=== PATIENT | male | born 1965 | race Caucasian/White ===

== ENCOUNTER 2018-03-27 17:38 | Inpatient (IN) | payer MEDICARE, OTHER ==
[~2018-03-27] VITALS: Ht 175.3 cm; Wt 158.5 kg
[2018-03-27] MEDS ORDERED: heparin 10,000 units/1 ML INJ IV ONE (18:15)
[2018-03-27] MEDS ORDERED: ondansetron/PF 4mg/2ml inj IV ONE (18:15)
[2018-03-27] MEDS ORDERED: fentaNYL/PF 50MCG/1 ML 2ML syringe IV ONE (18:15)
[2018-03-27] MEDS ORDERED: etomidate 2mg/ml inj. IV ONE (18:15)
[2018-03-27 18:17] LABS: BASOPHILS % (AUTO) 0.7 % (0-1); EOSINOPHILS # (AUTO) 0.1 X10'3 (0-0.9); HEMATOCRIT 43.1 % (42.0-52.0); HEMOGLOBIN 14.6 g/dl (14.0-17.9); LYMPHOCYTES # (AUTO) 2.2 X10'3 (1.1-4.8); LYMPHOCYTES % (AUTO) 31.9 % (21-51); MEAN CORPUSCULAR HEMOGLOBIN 31.3 PG (27.0-31.0); MEAN CORPUSCULAR HGB CONC 33.8 % (33.0-36.5); MEAN CORPUSCULAR VOLUME 92.7 FL (78-98); MEAN PLATELET VOLUME 7.1 FL (7.4-10.4); MONOCYTES # (AUTO) 0.4 X10'3 (0-0.9); MONOCYTES % (AUTO) 6.4 % (2-12); PLATELET COUNT 256 X10'3 (140-440); RED BLOOD COUNT 4.65 X10'6 (4.70-6.10); RED CELL DISTRIBUTION WIDTH 15.3 % (11.5-14.5); WHITE BLOOD COUNT 6.8 X10'3 (4.5-11.0)
[2018-03-27 18:27] LABS: ALANINE AMINOTRANSFERASE 45 U/L (12-78); ALBUMIN 3.2 G/DL (3.4-5.0); ALBUMIN/GLOBULIN RATIO 0.8 (1.1-1.5); ALKALINE PHOSPHATASE 94 IU/L (46-116); ANION GAP 14 (8-16); ASPARTATE AMINO TRANSFERASE 41 U/L (10-37); BILIRUBIN,TOTAL 0.6 MG/DL (0.1-1.0); BLOOD UREA NITROGEN 10 MG/DL (7-18); BUN/CREATININE RATIO 12.7 (5.4-32.0); CALCIUM 7.4 MG/DL (8.5-10.1); CHLORIDE 106 MMOL/L (99-107); CREATININE 0.79 MG/DL (0.60-1.10); GLUCOSE 116 MG/DL (70-104); POTASSIUM 3.7 MMOL/L (3.5-5.1); SODIUM 145 MMOL/L (135-145); TOTAL CARBON DIOXIDE 25.5 MMOL/L (24-32); eGFR > 90 ML/MIN
[2018-03-27 18:33] LABS: D-DIMER 0.89 MG/L FEU (0-0.50); INR 1.1 INR; PARTIAL THROMBOPLASTIN TIME 30 SECONDS (22-32); PROTHROMBIN TIME 11.2 SECONDS (9.0-12.0)
[2018-03-27] MEDS ORDERED: amiodarone 150mg/dext, iso-os 100 ML IV ONE ×2 (19:15→20:25)
[2018-03-27] MEDS ORDERED: digoxin 250mcg/ml 2ml ampule IV ONE (19:25)
[2018-03-27] MEDS ORDERED: CYCL-394 PO (20:30)
[2018-03-27] MEDS ORDERED: DULO60CA45 PO (20:34)
[2018-03-27] MEDS ORDERED: DIGO125T PO (20:34)
[2018-03-27] MEDS ORDERED: LISI-642 PO (20:34)
[2018-03-27] MEDS ORDERED: ALLO100T PO (20:34)
[2018-03-27] MEDS ORDERED: GABA-532 PO (20:34)
[2018-03-27] MEDS ORDERED: FURO80TA3 PO (20:34)
[2018-03-27] MEDS ORDERED: SPIR25TA5 PO (20:34)
[2018-03-27] MEDS ORDERED: RIVA20TA PO (20:34)
[2018-03-27] MEDS ORDERED: morphine 2 MG/ML inj. syringe IV PRN (21:45)
[2018-03-27] MEDS ORDERED: mag hydrox/Alum hydrox/simeth 30ml oral suspension PO PRN (21:45)
[2018-03-27] MEDS ORDERED: ondansetron/PF 4mg/2ml inj IV PRN (21:45)
[2018-03-27] MEDS ORDERED: acetaminophen 325mg tablet PO PRN (21:45)
[2018-03-27] MEDS ORDERED: HYDROcodone/acetaminophen 5mg/325mg tablet PO PRN (21:45)
[2018-03-27] MEDS ORDERED: magnesium hydroxide 30ml (MOM) UD suspension PO PRN (21:45)
[2018-03-27] MEDS: amiodarone/D5 360MG/200ML BAG 200 ML IV SCH (22:10)
[2018-03-27] MEDS: morphine 4 MG/ML inj SYRINge IV PRN (22:11)
[2018-03-27 22:17] LABS: HEMOGLOBIN A1C 5.5 % (4.5-6.2)
[2018-03-28] VITALS (9 sets, daily range): BP systolic 123–180; BP diastolic 85–141
[2018-03-28] MEDS: morphine 4 MG/ML inj SYRINge IV PRN ×3 (02:32→21:44)
[2018-03-28] MEDS: amiodarone/D5 360MG/200ML BAG 200 ML IV SCH ×4 (05:04→22:06)
[2018-03-28] MEDS ORDERED: dextrose 50%-water 50ml dispensing syringe IV PRN (07:25)
[2018-03-28] MEDS ORDERED: haloperidol lactate 5mg/ml inj IM PRN (07:25)
[2018-03-28] MEDS ORDERED: haloperidol 5mg tablet PO PRN (07:25)
[2018-03-28 07:37] LABS: BASOPHILS % (AUTO) 0.1 % (0-1); EOSINOPHILS # (AUTO) 0.2 X10'3 (0-0.9); EOSINOPHILS % (AUTO) 2.2 % (0-6); HEMATOCRIT 45.4 % (42.0-52.0); HEMOGLOBIN 14.9 g/dl (14.0-17.9); LYMPHOCYTES # (AUTO) 1.4 X10'3 (1.1-4.8); LYMPHOCYTES % (AUTO) 16.2 % (21-51); MEAN CORPUSCULAR HEMOGLOBIN 30.6 PG (27.0-31.0); MEAN CORPUSCULAR HGB CONC 32.9 % (33.0-36.5); MEAN PLATELET VOLUME 6.8 FL (7.4-10.4); MONOCYTES # (AUTO) 0.5 X10'3 (0-0.9); MONOCYTES % (AUTO) 5.7 % (2-12); NEUTROPHILS # (AUTO) 6.8 X10'3 (1.8-7.7); NEUTROPHILS % (AUTO) 75.8 % (42-75); PLATELET COUNT 229 X10'3 (140-440); RED BLOOD COUNT 4.88 X10'6 (4.70-6.10); RED CELL DISTRIBUTION WIDTH 15.5 % (11.5-14.5); WHITE BLOOD COUNT 8.9 X10'3 (4.5-11.0)
[2018-03-28] MEDS: LORazepam 2 mg/ml vial IV PRN ×3 (07:41→18:53)
[2018-03-28] MEDS: digoxin 125mcg (0.125mg) tablet PO SCH (07:47)
[2018-03-28] MEDS: gabapentin 300mg capsule PO SCH ×3 (07:47→21:39)
[2018-03-28] MEDS: cyclobenzaprine 10mg tablet PO SCH ×3 (07:47→21:40)
[2018-03-28] MEDS: rivaroxaban 20mg tablet PO SCH (07:48)
[2018-03-28] MEDS: furosemide 40mg tablet PO SCH ×2 (07:48→21:39)
[2018-03-28] MEDS: duloxetine 30mg CAPSULE.DR PO SCH (07:48)
[2018-03-28] MEDS: allopurinol 100mg tablet PO SCH ×2 (07:48→21:39)
[2018-03-28] MEDS: lisinopril 5mg tablet PO SCH ×2 (07:49→17:42)
[2018-03-28] MEDS: spironolactone 25 MG tablet PO SCH (07:49)
[2018-03-28 07:51] LABS: ALANINE AMINOTRANSFERASE 41 U/L (12-78); ALBUMIN 3.4 G/DL (3.4-5.0); ALBUMIN/GLOBULIN RATIO 0.9 (1.1-1.5); ALKALINE PHOSPHATASE 93 IU/L (46-116); ANION GAP 12 (8-16); ASPARTATE AMINO TRANSFERASE 31 U/L (10-37); BILIRUBIN,TOTAL 1.1 MG/DL (0.1-1.0); BLOOD UREA NITROGEN 9 MG/DL (7-18); BUN/CREATININE RATIO 10.5 (5.4-32.0); CALCIUM 7.8 MG/DL (8.5-10.1); CHLORIDE 101 MMOL/L (99-107); CREATININE 0.86 MG/DL (0.60-1.10); GLUCOSE 112 MG/DL (70-104); SODIUM 141 MMOL/L (135-145); TOTAL CARBON DIOXIDE 27.8 MMOL/L (24-32); TOTAL PROTEIN 7.2 G/DL (6.4-8.2); eGFR > 90 ML/MIN
[2018-03-28 07:54] LABS: CHOL/HDL RATIO 3.3 (0.00-4.99); CHOLESTEROL 271 MG/DL (0-200); HDL CHOLESTEROL 82 MG/DL (35-60); LDL CHOLESTEROL 172 MG/DL (50-100); TRIGLYCERIDES 92 MG/DL (20-135)
[2018-03-28] MEDS: HYDROcodone/acetaminophen 10/325mg tab PO PRN ×2 (12:04→18:53)
[2018-03-28] MEDS: carVEDilol 12.5mg tablet PO SCH ×2 (12:04→21:40)
[2018-03-28] MEDS ORDERED: hydrALAZINE 20mg/ml inj. IV PRN (18:00)
[2018-03-29] MEDS: LORazepam 2 mg/ml vial IV PRN ×7 (00:06→18:58)
[2018-03-29] MEDS: HYDROcodone/acetaminophen 10/325mg tab PO PRN (00:18)
[2018-03-29] MEDS: morphine 4 MG/ML inj SYRINge IV PRN ×6 (01:53→21:40)
[2018-03-29] MEDS: amiodarone/D5 360MG/200ML BAG 200 ML IV SCH (01:53)
[2018-03-29 03:00] VITALS: BP 127/89
[2018-03-29 05:57] LABS: BASOPHILS # (AUTO) 0.1 X10'3 (0-0.2); BASOPHILS % (AUTO) 1.4 % (0-1); EOSINOPHILS # (AUTO) 0.3 X10'3 (0-0.9); EOSINOPHILS % (AUTO) 4.7 % (0-6); HEMATOCRIT 40.4 % (42.0-52.0); HEMOGLOBIN 13.7 g/dl (14.0-17.9); LYMPHOCYTES # (AUTO) 1.6 X10'3 (1.1-4.8); LYMPHOCYTES % (AUTO) 24.2 % (21-51); MEAN CORPUSCULAR HEMOGLOBIN 31.5 PG (27.0-31.0); MEAN CORPUSCULAR HGB CONC 33.9 % (33.0-36.5); MEAN PLATELET VOLUME 7.2 FL (7.4-10.4); MONOCYTES # (AUTO) 0.5 X10'3 (0-0.9); NEUTROPHILS # (AUTO) 4.1 X10'3 (1.8-7.7); NEUTROPHILS % (AUTO) 62.7 % (42-75); PLATELET COUNT 199 X10'3 (140-440); RED BLOOD COUNT 4.35 X10'6 (4.70-6.10); RED CELL DISTRIBUTION WIDTH 15.3 % (11.5-14.5); WHITE BLOOD COUNT 6.6 X10'3 (4.5-11.0)
[2018-03-29 06:00] VITALS: BP 105/70
[2018-03-29 06:30] LABS: ALANINE AMINOTRANSFERASE 30 U/L (12-78); ALBUMIN 2.9 G/DL (3.4-5.0); ALBUMIN/GLOBULIN RATIO 0.9 (1.1-1.5); ALKALINE PHOSPHATASE 84 IU/L (46-116); ANION GAP 11 (8-16); ASPARTATE AMINO TRANSFERASE 22 U/L (10-37); BILIRUBIN,TOTAL 1.2 MG/DL (0.1-1.0); BLOOD UREA NITROGEN 13 MG/DL (7-18); BUN/CREATININE RATIO 12.6 (5.4-32.0); CALCIUM 7.3 MG/DL (8.5-10.1); CHLORIDE 99 MMOL/L (99-107); CREATININE 1.03 MG/DL (0.60-1.10); GLUCOSE 110 MG/DL (70-104); POTASSIUM 3.8 MMOL/L (3.5-5.1); SODIUM 139 MMOL/L (135-145); TOTAL CARBON DIOXIDE 29.3 MMOL/L (24-32); TOTAL PROTEIN 6.3 G/DL (6.4-8.2); eGFR 76 ML/MIN
[2018-03-29] MEDS: allopurinol 100mg tablet PO SCH ×2 (07:51→21:37)
[2018-03-29] MEDS: furosemide 40mg tablet PO SCH ×2 (07:52→21:36)
[2018-03-29] MEDS: gabapentin 300mg capsule PO SCH ×3 (07:53→21:38)
[2018-03-29] MEDS: duloxetine 30mg CAPSULE.DR PO SCH (07:53)
[2018-03-29] MEDS: digoxin 125mcg (0.125mg) tablet PO SCH (07:54)
[2018-03-29] MEDS: rivaroxaban 20mg tablet PO SCH (07:54)
[2018-03-29] MEDS: cyclobenzaprine 10mg tablet PO SCH ×3 (07:54→21:37)
[2018-03-29] MEDS: lisinopril 5mg tablet PO SCH ×2 (07:54→17:15)
[2018-03-29] MEDS: carVEDilol 12.5mg tablet PO SCH ×2 (07:54→20:00)
[2018-03-29] MEDS: spironolactone 25 MG tablet PO SCH (07:56)
[2018-03-29 11:00] VITALS: BP 99/56
[2018-03-29 15:00] VITALS: BP 98/79
[2018-03-29 18:00] VITALS: BP 106/59
[2018-03-29 22:00] VITALS: BP 124/70
[2018-03-30] MEDS: LORazepam 2 mg/ml vial IV PRN ×3 (00:29→23:05)
[2018-03-30 02:00] VITALS: BP 112/79
[2018-03-30] MEDS: morphine 4 MG/ML inj SYRINge IV PRN ×4 (04:03→20:36)
[2018-03-30 06:00] VITALS: BP 127/89
[2018-03-30 06:03] LABS: BASOPHILS # (AUTO) 0.1 X10'3 (0-0.2); BASOPHILS % (AUTO) 0.9 % (0-1); EOSINOPHILS # (AUTO) 0.5 X10'3 (0-0.9); EOSINOPHILS % (AUTO) 6.6 % (0-6); HEMATOCRIT 41.2 % (42.0-52.0); HEMOGLOBIN 13.6 g/dl (14.0-17.9); LYMPHOCYTES # (AUTO) 1.4 X10'3 (1.1-4.8); LYMPHOCYTES % (AUTO) 20.4 % (21-51); MEAN CORPUSCULAR HEMOGLOBIN 30.8 PG (27.0-31.0); MEAN CORPUSCULAR VOLUME 93.1 FL (78-98); MEAN PLATELET VOLUME 7.7 FL (7.4-10.4); MONOCYTES # (AUTO) 0.5 X10'3 (0-0.9); MONOCYTES % (AUTO) 6.7 % (2-12); NEUTROPHILS # (AUTO) 4.6 X10'3 (1.8-7.7); NEUTROPHILS % (AUTO) 65.4 % (42-75); PLATELET COUNT 170 X10'3 (140-440); RED BLOOD COUNT 4.42 X10'6 (4.70-6.10); RED CELL DISTRIBUTION WIDTH 14.9 % (11.5-14.5)
[2018-03-30 06:40] LABS: ALANINE AMINOTRANSFERASE 32 U/L (12-78); ALBUMIN/GLOBULIN RATIO 0.8 (1.1-1.5); ALKALINE PHOSPHATASE 82 IU/L (46-116); ANION GAP 8 (8-16); ASPARTATE AMINO TRANSFERASE 31 U/L (10-37); BLOOD UREA NITROGEN 23 MG/DL (7-18); BUN/CREATININE RATIO 20.4 (5.4-32.0); CALCIUM 8.4 MG/DL (8.5-10.1); CHLORIDE 97 MMOL/L (99-107); CREATININE 1.13 MG/DL (0.60-1.10); GLUCOSE 110 MG/DL (70-104); POTASSIUM 4.3 MMOL/L (3.5-5.1); SODIUM 138 MMOL/L (135-145); TOTAL CARBON DIOXIDE 33.4 MMOL/L (24-32); TOTAL PROTEIN 6.7 G/DL (6.4-8.2); eGFR 68 ML/MIN
[2018-03-30] MEDS: duloxetine 30mg CAPSULE.DR PO SCH (08:46)
[2018-03-30] MEDS: lisinopril 5mg tablet PO SCH (08:47)
[2018-03-30] MEDS: cyclobenzaprine 10mg tablet PO SCH ×3 (08:47→20:35)
[2018-03-30] MEDS: gabapentin 300mg capsule PO SCH ×3 (08:47→20:35)
[2018-03-30] MEDS: spironolactone 25 MG tablet PO SCH (08:47)
[2018-03-30] MEDS: rivaroxaban 20mg tablet PO SCH (08:47)
[2018-03-30] MEDS: allopurinol 100mg tablet PO SCH ×2 (08:47→20:35)
[2018-03-30] MEDS: furosemide 40mg tablet PO SCH (08:47)
[2018-03-30] MEDS: digoxin 125mcg (0.125mg) tablet PO SCH (08:48)
[2018-03-30] MEDS: carVEDilol 12.5mg tablet PO SCH ×2 (08:52→20:35)
[2018-03-30 09:09] LABS: MAGNESIUM 1.3 MG/DL (1.5-2.4)
[2018-03-30] MEDS ORDERED: potassium Cl 20 mEq SR tablet PO PRN ×2 (10:50)
[2018-03-30] MEDS ORDERED: magnesium 4gm in 100ml NS 100 ML IV PRN (10:50)
[2018-03-30] MEDS ORDERED: potassium Cl 40MEQ/NS 500ml 500 ML IV PRN ×2 (10:50)
[2018-03-30] MEDS ORDERED: magnesium 1gm/100ml D5W IVPB 100 ML IV PRN (10:50)
[2018-03-30 11:00] VITALS: BP 122/81
[2018-03-30] MEDS ORDERED: digoxin 250mcg/ml 2ml ampule IV ONE ×2 (11:45→18:00)
[2018-03-30] MEDS: magnesium Cl slow-release 64mg tablet PO PRN ×2 (12:21→20:35)
[2018-03-30 15:00] VITALS: BP 101/74
[2018-03-30 18:00] VITALS: BP 114/69
[2018-03-30] MEDS: furosemide 20MG tablet PO SCH (20:35)
[2018-03-30 22:00] VITALS: BP 121/88
[2018-03-31] MEDS: morphine 4 MG/ML inj SYRINge IV PRN ×7 (00:43→21:30)
[2018-03-31 02:00] VITALS: BP 102/70
[2018-03-31] MEDS: LORazepam 2 mg/ml vial IV PRN ×6 (04:43→22:30)
[2018-03-31 06:00] VITALS: BP 94/62
[2018-03-31 07:03] LABS: BASOPHILS # (AUTO) 0.1 X10'3 (0-0.2); BASOPHILS % (AUTO) 0.7 % (0-1); EOSINOPHILS # (AUTO) 0.5 X10'3 (0-0.9); EOSINOPHILS % (AUTO) 6.5 % (0-6); HEMATOCRIT 43.4 % (42.0-52.0); HEMOGLOBIN 14.3 g/dl (14.0-17.9); LYMPHOCYTES # (AUTO) 1.7 X10'3 (1.1-4.8); LYMPHOCYTES % (AUTO) 23.1 % (21-51); MEAN CORPUSCULAR VOLUME 93.8 FL (78-98); MEAN PLATELET VOLUME 7.9 FL (7.4-10.4); MONOCYTES # (AUTO) 0.6 X10'3 (0-0.9); NEUTROPHILS # (AUTO) 4.6 X10'3 (1.8-7.7); NEUTROPHILS % (AUTO) 61.7 % (42-75); PLATELET COUNT 173 X10'3 (140-440); RED BLOOD COUNT 4.63 X10'6 (4.70-6.10); RED CELL DISTRIBUTION WIDTH 14.6 % (11.5-14.5); WHITE BLOOD COUNT 7.4 X10'3 (4.5-11.0)
[2018-03-31] MEDS: rivaroxaban 20mg tablet PO SCH (07:11)
[2018-03-31] MEDS: gabapentin 300mg capsule PO SCH ×3 (07:12→20:46)
[2018-03-31] MEDS: digoxin 125mcg (0.125mg) tablet PO SCH (07:12)
[2018-03-31] MEDS: spironolactone 25 MG tablet PO SCH (07:12)
[2018-03-31] MEDS: cyclobenzaprine 10mg tablet PO SCH ×3 (07:12→20:46)
[2018-03-31] MEDS: furosemide 20MG tablet PO SCH ×2 (07:12→19:19)
[2018-03-31] MEDS: allopurinol 100mg tablet PO SCH ×2 (07:12→19:19)
[2018-03-31] MEDS: lisinopril 5mg tablet PO SCH (07:12)
[2018-03-31] MEDS: duloxetine 30mg CAPSULE.DR PO SCH (07:12)
[2018-03-31] MEDS: carVEDilol 12.5mg tablet PO SCH ×2 (07:13→19:19)
[2018-03-31 07:18] LABS: ALANINE AMINOTRANSFERASE 35 U/L (12-78); ALBUMIN/GLOBULIN RATIO 0.8 (1.1-1.5); ALKALINE PHOSPHATASE 85 IU/L (46-116); ANION GAP 7 (8-16); ASPARTATE AMINO TRANSFERASE 32 U/L (10-37); BLOOD UREA NITROGEN 20 MG/DL (7-18); BUN/CREATININE RATIO 19.4 (5.4-32.0); CALCIUM 8.3 MG/DL (8.5-10.1); CHLORIDE 97 MMOL/L (99-107); CREATININE 1.03 MG/DL (0.60-1.10); GLUCOSE 105 MG/DL (70-104); MAGNESIUM 1.4 MG/DL (1.5-2.4); POTASSIUM 4.1 MMOL/L (3.5-5.1); SODIUM 137 MMOL/L (135-145); TOTAL CARBON DIOXIDE 33.5 MMOL/L (24-32); TOTAL PROTEIN 6.6 G/DL (6.4-8.2); eGFR 76 ML/MIN
[2018-03-31] MEDS: magnesium Cl slow-release 64mg tablet PO PRN (08:18)
[2018-03-31 11:00] VITALS: BP 145/97
[2018-03-31 15:00] VITALS: BP 135/82
[2018-03-31 19:00] VITALS: BP 127/82
[2018-03-31] MEDS: HYDROcodone/acetaminophen 10/325mg tab PO PRN (22:31)
[2018-03-31 23:00] VITALS: BP 115/64
[2018-04-01] MEDS: morphine 4 MG/ML inj SYRINge IV PRN ×4 (00:14→08:33)
[2018-04-01] MEDS: magnesium Cl slow-release 64mg tablet PO PRN (00:15)
[2018-04-01 03:00] VITALS: BP 123/93
[2018-04-01 06:00] VITALS: BP 108/87
[2018-04-01] MEDS: LORazepam 2 mg/ml vial IV PRN ×2 (06:38→16:56)
[2018-04-01 07:02] LABS: BASOPHILS % (AUTO) 0.5 % (0-1); EOSINOPHILS # (AUTO) 0.6 X10'3 (0-0.9); EOSINOPHILS % (AUTO) 8.2 % (0-6); HEMATOCRIT 42.8 % (42.0-52.0); HEMOGLOBIN 14.1 g/dl (14.0-17.9); LYMPHOCYTES # (AUTO) 1.6 X10'3 (1.1-4.8); LYMPHOCYTES % (AUTO) 23.5 % (21-51); MEAN CORPUSCULAR HEMOGLOBIN 30.9 PG (27.0-31.0); MEAN CORPUSCULAR HGB CONC 32.9 % (33.0-36.5); MEAN CORPUSCULAR VOLUME 93.8 FL (78-98); MEAN PLATELET VOLUME 7.6 FL (7.4-10.4); MONOCYTES # (AUTO) 0.7 X10'3 (0-0.9); MONOCYTES % (AUTO) 10.6 % (2-12); NEUTROPHILS # (AUTO) 3.9 X10'3 (1.8-7.7); NEUTROPHILS % (AUTO) 57.2 % (42-75); PLATELET COUNT 174 X10'3 (140-440); RED BLOOD COUNT 4.56 X10'6 (4.70-6.10); RED CELL DISTRIBUTION WIDTH 15.1 % (11.5-14.5); WHITE BLOOD COUNT 6.8 X10'3 (4.5-11.0)
[2018-04-01 07:16] LABS: ANION GAP 5 (8-16); CHLORIDE 98 MMOL/L (99-107); GLUCOSE 109 MG/DL (70-104); POTASSIUM 4.3 MMOL/L (3.5-5.1); SODIUM 135 MMOL/L (135-145); TOTAL CARBON DIOXIDE 32.3 MMOL/L (24-32)
[2018-04-01 07:17] LABS: ALANINE AMINOTRANSFERASE 36 U/L (12-78); ALBUMIN/GLOBULIN RATIO 0.8 (1.1-1.5); ALKALINE PHOSPHATASE 79 IU/L (46-116); ASPARTATE AMINO TRANSFERASE 32 U/L (10-37); BILIRUBIN,TOTAL 0.9 MG/DL (0.1-1.0); BLOOD UREA NITROGEN 21 MG/DL (7-18); BUN/CREATININE RATIO 22.1 (5.4-32.0); CALCIUM 8.6 MG/DL (8.5-10.1); CREATININE 0.95 MG/DL (0.60-1.10); MAGNESIUM 1.6 MG/DL (1.5-2.4); TOTAL PROTEIN 6.8 G/DL (6.4-8.2); eGFR 84 ML/MIN
[2018-04-01] MEDS: gabapentin 300mg capsule PO SCH ×3 (08:00→20:06)
[2018-04-01] MEDS: digoxin 125mcg (0.125mg) tablet PO SCH (08:00)
[2018-04-01] MEDS: carVEDilol 12.5mg tablet PO SCH ×2 (08:00→20:06)
[2018-04-01] MEDS: cyclobenzaprine 10mg tablet PO SCH ×3 (08:00→20:05)
[2018-04-01] MEDS: rivaroxaban 20mg tablet PO SCH (08:00)
[2018-04-01] MEDS: allopurinol 100mg tablet PO SCH ×2 (08:00→20:05)
[2018-04-01] MEDS: duloxetine 30mg CAPSULE.DR PO SCH (08:00)
[2018-04-01] MEDS: furosemide 20MG tablet PO SCH ×2 (08:00→20:05)
[2018-04-01] MEDS: spironolactone 25 MG tablet PO SCH (08:00)
[2018-04-01] MEDS: lisinopril 5mg tablet PO SCH (08:00)
[2018-04-01 11:00] VITALS: BP 109/76
[2018-04-01] MEDS: HYDROcodone/acetaminophen 10/325mg tab PO PRN ×3 (12:38→21:51)
[2018-04-01 15:00] VITALS: BP 107/68
[2018-04-01 19:00] VITALS: BP 123/95
[2018-04-01 23:00] VITALS: BP 145/88
[2018-04-02] MEDS: HYDROcodone/acetaminophen 10/325mg tab PO PRN ×3 (02:07→10:46)
[2018-04-02 03:00] VITALS: BP 114/69
[2018-04-02] MEDS: LORazepam 2 mg/ml vial IV PRN (05:01)
[2018-04-02 06:00] VITALS: BP 131/86
[2018-04-02 06:41] LABS: MAGNESIUM 1.8 MG/DL (1.5-2.4); POTASSIUM 4.5 MMOL/L (3.5-5.1)
[2018-04-02] MEDS: carVEDilol 12.5mg tablet PO SCH (07:08)
[2018-04-02] MEDS: duloxetine 30mg CAPSULE.DR PO SCH (07:08)
[2018-04-02] MEDS: allopurinol 100mg tablet PO SCH (07:08)
[2018-04-02] MEDS: gabapentin 300mg capsule PO SCH (07:08)
[2018-04-02] MEDS: furosemide 20MG tablet PO SCH (07:08)
[2018-04-02] MEDS: spironolactone 25 MG tablet PO SCH (07:08)
[2018-04-02] MEDS: digoxin 125mcg (0.125mg) tablet PO SCH (07:09)
[2018-04-02] MEDS: lisinopril 5mg tablet PO SCH (07:09)
[2018-04-02] MEDS: rivaroxaban 20mg tablet PO SCH (07:09)
[2018-04-02] MEDS: cyclobenzaprine 10mg tablet PO SCH (07:09)
[2018-04-02] MEDS ORDERED: digoxin 250mcg/ml 2ml ampule IV ONE (09:30)
[2018-04-02] MEDS ORDERED: CARV-50 PO (10:12)
[2018-04-02] MEDS ORDERED: FURO20TA4 PO (10:12)
[2018-04-02] MEDS ORDERED: LORA-269 PO (10:13)
[2018-04-02 11:00] VITALS: BP 115/64
== END 2018-04-02 11:24 | disposition home or self-care (01) | DRG 309 ==
LOC: ER 17:39 → ED HOLD 21:42 → EDBEDREQ 03-28 06:20 → PCU 3S 03-28 07:05 → CMPBEDREQ 04-01 21:33
PROVIDERS: ADMIT Internal Medicine; ATTEND Internal Medicine
PROC: 5A2204Z Restoration of Cardiac Rhythm, Single (ICD-10-PCS; principal; 2018-03-27)
PROC: 5A09457 Assistance with Respiratory Ventilation, 24-96 Consecutive Hours, Continuous Positive Airway Pressure (ICD-10-PCS; 2018-03-28)
PROC: 5A09457 Assistance with Respiratory Ventilation, 24-96 Consecutive Hours, Continuous Positive Airway Pressure (ICD-10-PCS; 2018-03-29)
PROC: 5A09457 Assistance with Respiratory Ventilation, 24-96 Consecutive Hours, Continuous Positive Airway Pressure (ICD-10-PCS; 2018-03-30)
PROC: 5A09457 Assistance with Respiratory Ventilation, 24-96 Consecutive Hours, Continuous Positive Airway Pressure (ICD-10-PCS; 2018-03-31)
DX: I48.1 Persistent atrial fibrillation (principal); I24.9 Acute ischemic heart disease, unspecified; I50.22 Chronic systolic (congestive) heart failure; N17.9 Acute kidney failure, unspecified; Z68.43 Body mass index [BMI] 50.0-59.9, adult; F10.239 Alcohol dependence with withdrawal, unspecified; E66.01 Morbid (severe) obesity due to excess calories; I47.2 Ventricular tachycardia; D17.9 Benign lipomatous neoplasm, unspecified; F17.210 Nicotine dependence, cigarettes, uncomplicated; G47.33 Obstructive sleep apnea (adult) (pediatric); E86.1 Hypovolemia; G89.29 Other chronic pain; I11.0 Hypertensive heart disease with heart failure; J44.9 Chronic obstructive pulmonary disease, unspecified; M19.90 Unspecified osteoarthritis, unspecified site; M54.9 Dorsalgia, unspecified; R26.81 Unsteadiness on feet; Z91.041 Radiographic dye allergy status; Z79.01 Long term (current) use of anticoagulants; Z79.899 Other long term (current) drug therapy; Z71.6 Tobacco abuse counseling; Z71.41 Alcohol abuse counseling and surveillance of alcoholic
CPT/HCPCS: 36415; 71045; 76937; 80053; 80061; 80162; 82948; 83036; 83735; 83880; 84132; 84439; 84443; 84484; 85025; 85379; 85610; 85730; 87040; 87070; 93005; 93306; 93970; 94660; 94760; 96365; 96375; 97110; 97116; 99291; G0378; J0282; J0360; J1160; J1644; J2060; J2270; J2405; J3010; J3490